=== PATIENT | female | born 1960 | race Caucasian/White ===

== ENCOUNTER 2022-09-26 09:28 | Outpatient (CLI) | payer BC ==
[2022-09-26 11:17] LABS: Anion Gap 12 mmol/L (10-20); BUN (Urea Nitrogen) 11 mg/dL (9.8-20.1); Calc. Creatinine Clearance 0 mL/min (70-130); Calcium 9.8 mg/dL (7.8-10.44); Carbon Dioxide 26 mmol/L (23-31); Chloride 105 mmol/L (98-107); Estimated GFR 77; Glucose 98 mg/dL (80-115); Potassium 5.1 mmol/L (3.5-5.1); Sodium 138 mmol/L (136-145)
[2022-09-26 11:19] LABS: Hemoglobin 15.8 g/dL (12.0-15.5); Mean Corpuscular HGB CONC 33.9 g/dL (32.0-36.0); Mean Corpuscular Hemoglobin 32.5 pg (27.0-33.0); Mean Corpuscular Volume 95.9 fl (81.6-98.3); Mean Platelet Volume 10.1 fl (7.4-10.4); Platelet Count 253 10x3/uL (150-450); RBC Distribution Width 12.2 % (11.5-14.5); Red Blood Cell (RBC) Count 4.86 10x6/uL (3.90-5.03); White Blood Cell (WBC) Count 8.8 10x3/uL (3.5-10.5)
== END 2022-09-26 09:29 | disposition home or self-care (01) ==
LOC: LABBT 09:28
PROVIDERS: ATTEND Thoracic Surgery (Cardiothoracic Vascular Surgery)
DX: Z01.812 Encounter for preprocedural laboratory examination (principal); I65.21 Occlusion and stenosis of right carotid artery
CPT/HCPCS: 80048; 85027

== ENCOUNTER 2022-09-26 09:30 | Inpatient (IN) | payer BC ==
[2022-09-27] MEDS ORDERED: CEFAZOLIN 2 GM VIAL ONE (06:33)
[2022-09-27] MEDS ORDERED: Midazolam HCl 2 mg/2 ml Vial ONE (06:33)
[2022-09-27] MEDS ORDERED: Lidocaine 1% MPF 2 ML VIAL ONE (06:33)
[2022-09-27] MEDS ORDERED: niCARdipine 25 MG/10 ML VIAL ONE (06:33)
[2022-09-27] MEDS ORDERED: Norepinephrine 4 MG/4 ML VIAL ONE (06:33)
[2022-09-27] MEDS ORDERED: Sodium Chloride 0.9% 100 ML ONE (06:33)
[2022-09-27] MEDS ORDERED: fentaNYL PF 100 MCG/2 ML SYRINGE ONE ×3 (06:33→10:24)
[2022-09-27] MEDS ORDERED: Protamine Sulfate 50 MG/5 ML VIAL ONE (06:34)
[2022-09-27] MEDS ORDERED: Heparin 5,000 UNITS/ML VIAL ONE (06:34)
[2022-09-27] MEDS ORDERED: Bupivacaine/Epinephrine 0.25% 30 ML VIAL ONE (06:34)
[2022-09-27] MEDS ORDERED: Potassium Chloride 20 MEQ/100 ML PREMIX BAG ONE (06:54)
[2022-09-27] MEDS ORDERED: Magnesium 5 GM/10 ML Abboject SYRINGE ONE (06:54)
[2022-09-27] MEDS ORDERED: Phenylephrine 10 MG/ML VIAL ONE (06:54)
[2022-09-27] MEDS ORDERED: SUGAMMADEX SODIUM 200 MG/2 ML VIAL ONE (06:54)
[2022-09-27] MEDS ORDERED: Rocuronium Bromide 10 MG/ML (10ML VIAL) ONE (07:35)
[2022-09-27] MEDS ORDERED: Dexamethasone 20 MG/5 ML VIAL ONE (07:35)
[2022-09-27] MEDS ORDERED: PROPOFOL 200 MG/20 ML VIAL ONE (07:35)
[2022-09-27] MEDS ORDERED: Ondansetron PF 4 MG/2 ML Vial ONE (07:35)
[2022-09-27 08:00] LABS: SARS-CoV-2 NAA Rapid Test Not Detected (NotDetected)
[2022-09-27] MEDS ORDERED: Phenylephrine 40 MG in Sodium Chloride 0.9% 250 ML 250 ML IVPB PRN (08:57)
[2022-09-27] MEDS ORDERED: Acetaminophen 325 MG TAB PO PRN (08:57)
[2022-09-27] MEDS ORDERED: Fentanyl 100 MCG/2 ML VIAL SLOW IVP PRN (08:57)
[2022-09-27] MEDS ORDERED: Ondansetron PF 4 MG/2 ML Vial IVP PRN (08:57)
[2022-09-27] MEDS ORDERED: FENTANYL 50 MCG/ML 1 ML VIAL SLOW IVP PRN ×2 (08:57→09:15)
[2022-09-27] MEDS ORDERED: niCARdipine 25 MG in Sodium Chloride 0.9% 250 ML 250 ML IVPB PRN (08:57)
[2022-09-27] MEDS ORDERED: Amlodipine 5 MG TAB ONE (09:58)
[2022-09-27] MEDS: Amlodipine 5 MG TAB PO SCH (09:59)
[2022-09-27] MEDS: Sodium Chloride 0.9% 1,000 ML IV SCH ×2 (11:30→19:24)
[2022-09-27] MEDS: Aspirin Chewable 81 MG TAB PO SCH (11:41)
[2022-09-27] MEDS: HYDROcodone/Acetaminophen 5/325 mg Tablet PO PRN (13:36)
[2022-09-27] MEDS: CEFAZOLIN 2 GM in Sodium Chloride 0.9% 100 ML IVPB SCH ×2 (13:48→22:01)
[2022-09-27 15:01] VITALS: BMI 36.1
[2022-09-27] MEDS ORDERED: FLU VACC QS2022-23(6MOS UP)/PF 60 MCG/0.5 ML SYRINGE IM ONE (15:15)
[2022-09-27] MEDS: HYDROcodone/Acetaminophen 10/325 mg Tablet PO PRN ×2 (16:06→22:02)
[2022-09-27] MEDS ORDERED: Ketorolac Tromethamine 30 MG/ML VIAL IVP PRN (16:45)
[2022-09-27] MEDS ORDERED: Atorvastatin Calcium 40 MG TAB PO SCH (21:00)
[2022-09-28] MEDS: HYDROcodone/Acetaminophen 5/325 mg Tablet PO PRN (04:58)
[2022-09-28] MEDS: CEFAZOLIN 2 GM in Sodium Chloride 0.9% 100 ML IVPB SCH (05:01)
[2022-09-28] MEDS: Sodium Chloride 0.9% 1,000 ML IV SCH (05:18)
[2022-09-28 08:00] VITALS: BP 130/74
[2022-09-28] MEDS: Amlodipine 5 MG TAB PO SCH (08:00)
[2022-09-28] MEDS: Aspirin Chewable 81 MG TAB PO SCH (08:00)
[2022-09-28 08:12] VITALS: TEMP 97.6
== END 2022-09-28 08:42 | disposition home or self-care (01) | DRG 39 ==
LOC: SURG A 09-27 06:03 → CCU 09-27 10:51
PROVIDERS: ADMIT Thoracic Surgery (Cardiothoracic Vascular Surgery); ATTEND Thoracic Surgery (Cardiothoracic Vascular Surgery)
PROC: 03CH0ZZ Extirpation of Matter from Right Common Carotid Artery, Open Approach (ICD-10-PCS; principal; 2022-09-27)
PROC: 03UH0JZ Supplement Right Common Carotid Artery with Synthetic Substitute, Open Approach (ICD-10-PCS; 2022-09-27)
DX: I63.231 Cerebral infarction due to unspecified occlusion or stenosis of right carotid arteries (principal); Z20.822 Contact with and (suspected) exposure to COVID-19
CPT/HCPCS: C1768; J1100; J1642; J1644; J2250; J2370; J2405; J2704; J2720; J3475; J3480; J3490; J7050; U0002

== ENCOUNTER 2022-09-30 04:48 | Emergency (ER) | payer BC ==
[2022-09-30 05:40] LABS: #Basophils 0.1 thou/uL (0.0-0.2); #Eosinphils 0.2 thou/uL (0.0-0.7); #Lymphocytes 3.9 thou/uL (1.20-3.40); #Monocytes 0.5 thou/uL (0.11-0.59); #Neutrophils 5.8 thou/uL (1.40-6.50); %Basophils 1.4 % (0.0-1.0); %Eosinophils 1.8 % (0.0-10.0); %Lymphocytes 36.8 % (21.0-51.0); %Monocytes 4.8 % (0.0-10.0); %Neutrophils 55.1 % (42.0-75.0); Hemoglobin 14.4 g/dL (12.0-16.0); Mean Corpuscular HGB CONC 34.5 g/dL (32.0-36.0); Mean Corpuscular Hemoglobin 34.1 pg (27.0-31.0); Mean Corpuscular Volume 98.8 fl (78.0-98.0); Mean Platelet Volume 7.5 fL (7.4-10.4); Platelet Count 223 10x3/uL (130-400); RBC Distribution Width 11.6 % (11.5-14.5); Red Blood Cell (RBC) Count 4.24 mill/uL (4.20-5.40); White Blood Cell (WBC) Count 10.5 10x3/uL (4.8-10.8)
[2022-09-30 06:02] LABS: ALT (SGPT) 8 U/L (8-55); AST (SGOT) 14 U/L (5-34); Alkaline Phosphatase 91 U/L (40-110); Anion Gap 13 mmol/L (10-20); BUN (Urea Nitrogen) 17 mg/dL (9.8-20.1); Bilirubin, Total 0.4 mg/dL (0.2-1.2); Calc. Creatinine Clearance 0 mL/min (70-130); Carbon Dioxide 26 mmol/L (23-31); Chloride 107 mmol/L (98-107); Estimated GFR 68; Globulin 2.9 g/dL (2.4-3.5); Glucose 170 mg/dL (80-115); Potassium 3.6 mmol/L (3.5-5.1); Protein, Total 6.9 g/dL (5.8-8.1); Sodium 142 mmol/L (136-145)
[2022-09-30] MEDS ORDERED: Iopamidol 370 76% 100 ML VIAL ONE (08:53)
== END 2022-09-30 09:06 | disposition home or self-care (01) ==
LOC: ERS 04:48
DX: L76.32 Postprocedural hematoma of skin and subcutaneous tissue following other procedure (principal); J02.9 Acute pharyngitis, unspecified; F17.290 Nicotine dependence, other tobacco product, uncomplicated
CPT/HCPCS: 36415; 70490; 71045; 71275; 80053; 84484; 85025; 93005; Q9967

== ENCOUNTER 2023-09-13 08:31 | Outpatient (CLI) | payer BC | END 2023-09-13 08:32 | disposition home or self-care (01) | LOC: BICCT 08:31 | PROVIDERS: ATTEND Specialist | DX: R22.1 Localized swelling, mass and lump, neck (principal); K11.8 Other diseases of salivary glands; Z98.890 Other specified postprocedural states | CPT/HCPCS: 70491; 82565 ==